=== PATIENT | male | born 1970 | race Caucasian/White ===

== ENCOUNTER → 2016-10-16 | Outpatient (CLI) | payer OTHER ==
--- NOTE | 2016-10-16 15:49 | REP ---
MRI thoracic spine without contrast: History: Back pain. No comparison imaging. Technique: Sagittal and axial T1 and T2-weighted scans are acquired in the usual fashion with and without fat saturation. Sequences include spin echo, turbo spin-echo, and STIR imaging sequences. MRI findings: Thoracic vertebral body heights are preserved. Alignment is normal. Cortical and medullary bone signal intensity is normal. There is central disc bulging at C6-7. There are degenerative disc changes mild in degree throughout the mid thoracic spine. The thoracic cord is normal in coarse, caliber, and signal intensity at each level. No thoracic disc herniation is appreciated. No cord compressive lesion is seen. No neural foraminal encroachment is appreciated. Impression: Mild degenerative disc changes. No thoracic cord compressive lesion. No thoracic disc herniation is appreciated. Signed by Kian Olson MD 10/16/2016 04:09 P
== END ==
LOC: M PLARAD 14:18
PROVIDERS: ATTEND Nurse Practitioner Family
DX: M47.814 Spondylosis without myelopathy or radiculopathy, thoracic region (principal); M54.6 Pain in thoracic spine; M79.609 Pain in unspecified limb; M79.1 Myalgia; M50.322 Other cervical disc degeneration at C5-C6 level; M50.223 Other cervical disc displacement at C6-C7 level; M54.12 Radiculopathy, cervical region

== ENCOUNTER → 2021-01-24 | Outpatient (CLI) | payer OTHER, SELFPAY ==
--- NOTE | 2021-01-24 12:15 | REP ---
INDICATION: RT SHOULDER PAIN. COMPARISON: None. TECHNIQUE: Neutral, internal rotation, external rotation, Y-view, and axillary views of the right shoulder FINDINGS: Mild cortical irregularity at the acromioclavicular joint is appreciated. There is calcified blunting along the glenoid rim with subtle joint space narrowing. The subacromial space is normal. No periarticular calcifications or loose bodies are identified. No evidence for acute fracture or dislocation. There is a subtle cortical cystic lesion along the proximal humeral diaphysis which is nonspecific and incompletely evaluated. IMPRESSION: Mild degenerative changes primarily involving the glenohumeral joint. Small cortical cystic irregularity along the proximal humeral shaft of uncertain significance. <Electronically signed by Cristian Peterson > 01/24/21 [id number]
== END ==
LOC: M SOG 10:23
PROVIDERS: ATTEND Orthopaedic Surgery Sports Medicine
DX: M19.011 Primary osteoarthritis, right shoulder (principal); M25.511 Pain in right shoulder

== ENCOUNTER → 2021-02-08 | Outpatient (CLI) | payer OTHER ==
--- NOTE | 2021-02-08 10:39 | REP ---
INDICATION: IMPINGEMENT SYNDROME OF RT SHOULDER. COMPARISON: Radiographs 01/24/2021. TECHNIQUE: Coronal oblique T1, T2 fat sat, sagittal oblique T2 fat sat, axial T2 fat sat, gradient echo. FINDINGS: Rotator cuff: There is moderate tendinopathy/tendinitis of the subscapularis, supraspinatus and infraspinatus tendons, with a suspected partial undersurface tearing of these tendons. Acromioclavicular joint: There are [id number] hypertrophic degenerative changes of the acromioclavicular joint, with mild fluid in the joint. Acromion: Type 2 Biceps Tendon: There has been a prior biceps tenotomy, with an anchor noted in the proximal humeral shaft, and no biceps tendon within the bicipital groove. Hill Sach's deformity: None. Deltoid muscle: No abnormal signal. . 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 Cartilage: There is mild chondromalacia at the glenohumeral joint. Bone marrow: No abnormal signal. A surgical anchor is seen in the anterior humeral head. Joint fluid: No effusion. IMPRESSION: There is moderate tendinopathy/tendinitis of the subscapularis, supraspinatus and infraspinatus tendons, with a suspected partial undersurface tearing of these tendons. There are [id number] hypertrophic degenerative changes of the acromioclavicular joint, with mild fluid in the joint. Prior biceps tenotomy. The superior labrum is truncated with what appears to be a sublabral foramen. There is mild chondromalacia at the glenohumeral joint. <Electronically signed by Edin Hancock > 02/08/21 [id number]
== END ==
LOC: M PLAIMG 08:47
PROVIDERS: ATTEND Orthopaedic Surgery Sports Medicine
DX: M75.41 Impingement syndrome of right shoulder (principal)

== ENCOUNTER → 2021-04-12 | Outpatient (CLI) | payer OTHER | LOC: M ADAMS 11:43 | PROVIDERS: ATTEND Physician Assistant | DX: M25.571 Pain in right ankle and joints of right foot (principal); M25.572 Pain in left ankle and joints of left foot ==

== ENCOUNTER → 2021-11-02 | Outpatient (REF) | payer OTHER ==
[2021-11-02 12:58] LABS: BASO # 0.1 10^3/uL (0.0-0.2); BASO % 0.6 % (0.0-1.0); EOS # 0.1 10^3/uL (0.0-0.5); EOS % 1.7 % (0.0-3.0); HEMATOCRIT 41.1 % (42.0-52.0); HEMOGLOBIN 14.1 g/dl (13.5-17.5); LYMPH # 2.3 10^3/uL (1.5-5.0); LYMPH % 30.1 % (24.0-44.0); MEAN CORPUSCULAR HGB CONC 34.3 g/dl (32.0-36.5); MEAN CORPUSCULAR VOLUME 90.3 fl (80.0-96.0); MONO # 0.5 10^3/uL (0.0-0.8); NEUTROPHILS # 4.6 10^3/uL (1.5-8.5); NEUTROPHILS % 59.7 % (36.0-66.0); PLATELET COUNT, AUTOMATED 239 10^3/uL (150-450); RED BLOOD COUNT 4.55 10^6/uL (4.30-6.10); WHITE BLOOD COUNT 7.7 10^3/uL (4.0-10.0)
[2021-11-02 13:27] LABS: HEMOGLOBIN A1c 8.3 %
[2021-11-02 14:14] LABS: BLOOD UREA NITROGEN 16 MG/DL (7-18); CALCIUM LEVEL 9.1 MG/DL (8.5-10.1); CARBON DIOXIDE LEVEL 26 MEQ/L (21-32); CHLORIDE LEVEL 103 MEQ/L (98-107); CREATININE FOR GFR 1.21 MG/DL (0.70-1.30); GLOMERULAR FILTRATION RATE > 60.0 (>56); GLUCOSE, FASTING 203 MG/DL (70-100); POTASSIUM SERUM 4.8 MEQ/L (3.5-5.1); SODIUM LEVEL 136 MEQ/L (136-145)
[2021-11-02 14:15] LABS: ALBUMIN 3.9 GM/DL (3.2-5.2); ALT/SGPT 65 U/L (12-78); BILIRUBIN,TOTAL 0.8 MG/DL (0.2-1.0); CHOLESTEROL LEVEL 190 MG/DL (<200); CHOLESTEROL RISK RATIO 3.584 (<5); FREE T4 0.81 NG/DL (0.76-1.46); HDL CHOLESTEROL 53 MG/DL (>40); LDL CHOLESTEROL 113 MG/DL (<100); NON-HDL-C 137 MG/DL; TOTAL PROTEIN 6.7 GM/DL (6.4-8.2); TRIGLYCERIDES LEVEL 118 MG/DL (<150)
[2021-11-02 14:30] LABS: MAU/CREAT RATIO 7.5 MCG/MG (0.0-30.0)
== END ==
LOC: M SFHCADAM 10:25
PROVIDERS: ATTEND Physician Assistant
DX: I10 Essential (primary) hypertension (principal); Z68.43 Body mass index [BMI] 50.0-59.9, adult; R60.9 Edema, unspecified; Z86.39 Personal history of other endocrine, nutritional and metabolic disease; J45.20 Mild intermittent asthma, uncomplicated; F51.01 Primary insomnia

== ENCOUNTER → 2023-06-29 | Outpatient (REF) | payer OTHER ==
[2023-06-29 12:19] LABS: BASO % 0.5 % (0.0-1.0); EOS # 0.2 10^3/uL (0.0-0.5); EOS % 2.7 % (0.0-3.0); HEMATOCRIT 45.1 % (42.0-52.0); HEMOGLOBIN 15.1 g/dl (13.5-17.5); LYMPH # 3.2 10^3/uL (1.5-5.0); MEAN CORPUSCULAR HEMOGLOBIN 30.6 pg (27.0-33.0); MEAN CORPUSCULAR HGB CONC 33.5 g/dl (32.0-36.5); MEAN CORPUSCULAR VOLUME 91.5 fl (80.0-96.0); MONO # 0.6 10^3/uL (0.0-0.8); MONO % 6.2 % (2.0-8.0); NEUTROPHILS # 4.8 10^3/uL (1.5-8.5); PLATELET COUNT, AUTOMATED 256 10^3/uL (150-450); RED BLOOD COUNT 4.93 10^6/uL (4.30-6.10); WHITE BLOOD COUNT 8.9 10^3/uL (4.0-10.0)
[2023-06-29 12:35] LABS: HEMOGLOBIN A1c 6.4 % (4.0-6.0)
[2023-06-29 12:43] LABS: ALBUMIN 4.2 G/DL (3.2-5.2); ALKALINE PHOSPHATASE 99 U/L (46-116); ALT/SGPT 46 U/L (7.0-40); AST/SGOT 20 U/L (<34); BILIRUBIN,TOTAL 0.5 MG/DL (0.3-1.2); BLOOD UREA NITROGEN 19 MG/DL (9-23); CALCIUM LEVEL 10.2 MG/DL (8.5-10.1); CARBON DIOXIDE LEVEL 27 MMOL/L (20-31); CHLORIDE LEVEL 105 MMOL/L (98-107); CHOLESTEROL LEVEL 119 MG/DL (<200); CHOLESTEROL RISK RATIO 2.11 (<5); FREE T4 0.91 NG/DL (0.89-1.76); GLOMERULAR FILTRATION RATE > 60.0 (>56); GLUCOSE, FASTING 152 MG/DL (60-100); HDL CHOLESTEROL 56.3 MG/DL (>40); LDL CHOLESTEROL 50.3 MG/DL (<100); NON-HDL-C 62.7 MG/DL; POTASSIUM SERUM 4.8 MMOL/L (3.5-5.1); SODIUM LEVEL 140 MMOL/L (136-145); THYROID STIMULATING HORMONE 1.362 uIU/ML (0.55-4.78); TOTAL PROTEIN 6.8 G/DL (5.7-8.2); TRIGLYCERIDES LEVEL 62 MG/DL (<150)
== END ==
LOC: M SFHCADAM 08:13
PROVIDERS: ATTEND Physician Assistant
DX: I10 Essential (primary) hypertension (principal); J45.20 Mild intermittent asthma, uncomplicated; E11.9 Type 2 diabetes mellitus without complications; E78.00 Pure hypercholesterolemia, unspecified